=== PATIENT | female | born 1980 | race Caucasian/White ===

== ENCOUNTER 2018-12-14 17:53 | Emergency (ER) | payer BC ==
[2018-12-14] MEDS ORDERED: VENL150C61 PO (18:04)
--- NOTE | 2018-12-14 18:16 | ER Report ---
History and Physical Time Seen By MD: 18:16 Hx. of Stated Complaint: PAIN IN BACK, NUMBNESS TINGLING IN FINGERS HPI/ROS CHIEF COMPLAINT: Back pain, numbness in hands HISTORY OF PRESENT ILLNESS: 37-year-old female patient presents to emergency room with complaint of back pain and numbness or hands. Patient states that she has recently moved to [facility], 5 days ago, and did a lot of moving herself. She states that with that she started having pain in her low back as well as her upper back. She states that she's had numbness or hands for the last few days. She states that all this started 2 or 3 days ago but seems to have persisted. 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 She denies any neck pain, she denies any falls or injury. She states that her hands swelled up and her ankles swelled up. She states that she has been elevating her legs seem to help. She states that when this is happening in the past has because her hemoglobin had dropped down to 4. She is concerned about being anemic. She denies any nausea, vomiting or diarrhea. She states she is not taking any medication for this. REVIEW OF SYSTEMS: Respiratory: No cough, no dyspnea. Cardiovascular: No chest pain, no palpitations. Gastrointestinal: No vomiting, no abdominal pain. Musculoskeletal: As noted above Allergies: Coded Allergies: cephalexin (Verified Allergy, Unknown, 12/14/18) Home Meds Active Scripts Ketorolac Tromethamine (KETOROLAC TROMETHAMINE) 10 Mg Tab, 10 MG PO Q6H, #20 TAB Prov:MELI CALDERON [facility] 12/14/18 Cyclobenzaprine Hcl (CYCLOBENZAPRINE HCL) 10 Mg Tablet, 10 MG PO TID PRN for MUSCLE SPASMS, #15 TAB Prov:MELI CALDERON [facility] 12/14/18 Reported Medications Venlafaxine Hcl (EFFEXOR XR) 150 Mg Cap.er.24h, 150 MG PO QDAY 12/14/18 Past Medical/Surgical History Patient has a past medical history of edema, pneumonia, depression. Patient has a surgical history of appendectomy. Reviewed Nurses Notes: Yes Hx Substance Use Disorder: No Hx Alcohol Use: No Constitutional Vital Sign - Last 24 Hours 12/14/18 12/14/18 12/14/18 12/14/18 17:53 17:59 17:59 18:02 Temp 98.4 Pulse ??? 149 Resp 22 B/P (MAP) 140/96 (111) 140/96 115/87 (96) Pulse Ox 97 O2 Delivery Room Air 12/14/18 12/14/18 12/14/18 12/14/18 18:23 18:53 19:23 19:30 Pulse 117 134 137 Resp 19 52 20 B/P (MAP) ???/??? (1665) Pulse Ox 95 96 12/14/18 12/14/18 12/14/18 12/14/18 19:35 20:00 20:30 20:35 Pulse 121 116 Resp 22 14 B/P (MAP) ???/??? (1665) 121/81 (94) Pulse Ox 94 12/14/18 12/14/18 12/14/18 12/14/18 21:00 21:05 21:10 21:30 Pulse 106 117 Resp 21 8 B/P (MAP) 103/80 (88) 113/87 (96) 12/14/18 12/14/18 12/14/18 12/14/18 21:40 22:00 22:10 22:30 Pulse 138 106 Resp 10 17 B/P (MAP) 116/90 (99) 113/89 (97) 12/14/18 12/14/18 12/14/18 22:40 22:45 23:00 Pulse 130 130 Resp 9 17 B/P (MAP) 114/86 (95) Physical Exam General Appearance: The patient is alert, has no immediate need for airway protection and no current signs of toxicity. Respiratory: Chest is non tender, lungs are clear to auscultation. Cardiac: regular rhythm, patient is tachycardic Gastrointestinal: Abdomen is soft and non tender, no masses, bowel sounds normal. Musculoskeletal: Neck: Neck is supple and non tender. Back: Patient had pain in her thoracic spine, T3, T4 area. Patient also has pain in the L5-S1 region. Extremities have full range of motion and are non tender. Patient had no obvious weakness in her extremities, decreased sensation in bilateral hands and fingers one through 4. Skin: No rashes or lesions. Patient has skin that has peeled on both hands. DIFFERENTIAL DIAGNOSIS: After history and physical exam differential diagnosis was considered for muscle strain, carpal tunnel, neurologic deficit, pinched nerve. Medical Decision Making Data Points Result Diagram: 12/14/18194212/14/181942 Laboratory Hematology Test 12/14/18 19:43 Red Blood Count 5.37 M/uL (4.17-5.56) Mean Corpuscular Volume 89.2 fL (80.0-96.0) Mean Corpuscular Hemoglobin 30.1 pg (26.0-33.0) Mean Corpuscular Hemoglobin Concent 33.8 g/dL (32.0-36.0) Red Cell Distribution Width 13.5 % (11.5-14.5) Mean Platelet Volume 8.2 fL (7.2-11.1) Neutrophils (%) (Auto) 62.9 % (39.4-72.5) Lymphocytes (%) (Auto) 30.5 % (17.6-49.6) Monocytes (%) (Auto) 4.7 % (4.1-12.4) Eosinophils (%) (Auto) 1.0 % (0.4-6.7) Basophils (%) (Auto) 0.9 % (0.3-1.4) Nucleated RBC Relative Count (auto) 0.1 /100WBC Neutrophils # (Auto) 6.8 K/uL (2.0-7.4) Lymphocytes # (Auto) 3.3 K/uL (1.3-3.6) Monocytes # (Auto) 0.5 K/uL (0.3-1.0) Eosinophils # (Auto) 0.1 K/uL (0.0-0.5) Basophils # (Auto) 0.1 K/uL (0.0-0.1) Nucleated RBC Absolute Count (auto) 0.01 K/uL Erythrocyte Sedimentation Rate 24 mm/HOUR (0-20) Sodium Level 137 mmol/L (137-145) Potassium Level 3.8 mmol/L (3.5-5.0) Chloride Level 105 mmol/L (98-107) Carbon Dioxide Level 21 mmol/L (22-31) Blood Urea Nitrogen 9 mg/dl (7-18) Creatinine 0.60 mg/dl (0.52-1.04) Glomerular Filtration Rate Calc > 60.0 Random Glucose 91 mg/dl (75-110) Calcium Level 9.8 mg/dl (8.4-10.2) Total Bilirubin 0.2 mg/dl (0.2-1.3) Aspartate Amino Transf (AST/SGOT) 22 U/L (0-35) Alanine Aminotransferase (ALT/SGPT) 23 U/L (0-56) Alkaline Phosphatase 104 U/L (0-126) C-Reactive Protein < 0.5 mg/dl (<1.0) B-Type Natriuretic Peptide < 5 pg/ml (0-100) Total Protein 8.1 g/dl (6.3-8.2) Albumin 4.5 g/dl (3.5-5.0) Human Chorionic Gonadotropin, Qual Negative (NEGATIVE) Chemistry Test 12/14/18 19:43 White Blood Count 10.8 k/uL (4.5-11.0) Red Blood Count 5.37 M/uL (4.17-5.56) Hemoglobin 16.2 g/dL (12.0-16.0) Hematocrit 47.9 % (34.0-47.0) Mean Corpuscular Volume 89.2 fL (80.0-96.0) Mean Corpuscular Hemoglobin 30.1 pg (26.0-33.0) Mean Corpuscular Hemoglobin Concent 33.8 g/dL (32.0-36.0) Red Cell Distribution Width 13.5 % (11.5-14.5) Platelet Count 370 K/uL (150-450) Mean Platelet Volume 8.2 fL (7.2-11.1) Neutrophils (%) (Auto) 62.9 % (39.4-72.5) Lymphocytes (%) (Auto) 30.5 % (17.6-49.6) Monocytes (%) (Auto) 4.7 % (4.1-12.4) Eosinophils (%) (Auto) 1.0 % (0.4-6.7) Basophils (%) (Auto) 0.9 % (0.3-1.4) Nucleated RBC Relative Count (auto) 0.1 /100WBC Neutrophils # (Auto) 6.8 K/uL (2.0-7.4) Lymphocytes # (Auto) 3.3 K/uL (1.3-3.6) Monocytes # (Auto) 0.5 K/uL (0.3-1.0) Eosinophils # (Auto) 0.1 K/uL (0.0-0.5) Basophils # (Auto) 0.1 K/uL (0.0-0.1) Nucleated RBC Absolute Count (auto) 0.01 K/uL Erythrocyte Sedimentation Rate 24 mm/HOUR (0-20) Glomerular Filtration Rate Calc > 60.0 Calcium Level 9.8 mg/dl (8.4-10.2) Total Bilirubin 0.2 mg/dl (0.2-1.3) Aspartate Amino Transf (AST/SGOT) 22 U/L (0-35) Alanine Aminotransferase (ALT/SGPT) 23 U/L (0-56) Alkaline Phosphatase 104 U/L (0-126) C-Reactive Protein < 0.5 mg/dl (<1.0) B-Type Natriuretic Peptide < 5 pg/ml (0-100) Total Protein 8.1 g/dl (6.3-8.2) Albumin 4.5 g/dl (3.5-5.0) Human Chorionic Gonadotropin, Qual Negative (NEGATIVE) EKG/Imaging Imaging EXAMINATION: CT Cervical spine without intravenous contrast HISTORY: Numbness in fingers. COMPARISON: None. TECHNIQUE: Axial images were obtained from the skull base through the upper thoracic spine without IV contrast administration. Coronal and sagittal reformatted images were obtained from the axial source data. One of the following dose optimization techniques was utilized in the performance of this exam: Automated exposure control; adjustment of the mA and/or kV according to the patient's size; or use of an iterative reconstruc tion technique. Specific details can be referenced in the facility's radiology CT exam operational policy. FINDINGS: Alignment: Kyphotic curvature of the cervical spine. Cranio-cervical junction: Negative. Vertebral bodies: Negative. Posterior elements: Negative. Hardware: None. Disc Spaces: Intervertebral disc heights are maintained. No evidence of any significant spinal canal or neural foraminal narrowing. Soft tissues: Negative. Visualized upper chest: Mild pleural-parenchymal scarring at the lung apices. IMPRESSION: No acute fracture or dislocation of the cervical spine. No significant degenerative changes are seen in the cervical spine. Report Dictated By: Austin Marley MD at 12/14/2018 10:39 PM Report E-Signed By: Austin Marley MD at 12/14/2018 10:47 PM EXAMINATION: Head CT without intravenous contrast HISTORY: Numbness in fingers. COMPARISON: None. TECHNIQUE: Contiguous axial images were obtained from the skull base to the vertex without intravenous contrast. Sagittal and coronal reformatted images are also submitted. One of the following dose optimization techniques was utilized in the performance of this exam: Automated exposure control; adjustment of the mA and/or kV according to the patient's size; or use of an iterative reconstruction technique. Specific details can be referenced in the facility's radiology CT exam operational policy. FINDINGS: Brain and intracranial structures: Ventricles, sulci, and cisterns are normal in size. Rose-white matter differentiation is maintained. No midline shift, acute hemorrhage, mass, or evidence of acute infarct. Calvarium / scalp: Negative. Skull base / visualized face: Negative. Visualized sinuses / orbits: Negative. IMPRESSION: No CT evidence of acute intracranial pathology. Report Dictated By: Austin Marley MD at 12/14/2018 9:07 PM Report E-Signed By: Austin Marley MD at 12/14/2018 9:16 PM EXAMINATION: CT Lumbar spine without intravenous contrast HISTORY: Pain, numbness in fingers. COMPARISON: None. TECHNIQUE: Axial images were obtained through the lumbar spine without IV contrast administration. Coronal and sagittal reformatted images were obtained from the axial source data. One of the following dose optimization techniques was utilized in the perform ance of this exam: Automated exposure control; adjustment of the mA and/or kV according to the patient's size; or use of an iterative reconstruction technique. Specific details can be referenced in the facility's radiology CT exam operational policy. FINDINGS: Alignment: Mild left convex curvature of the upper lumbar spine. Vertebral bodies: Vertebral body heights are maintained. No acute fracture. Posterior elements: Negative. Hardware: None. Disc Spaces: Intervertebral disc heights are maintained. Schmorl node in the superior endplate of S1. Disc bulge mildly narrows the bilateral L4-5 neural foramina. No significant central spinal canal narrowing. Soft tissues: Negative. Visualized retroperitoneal / abdominal structures: Negative. IMPRESSION: No acute fracture or dislocation of the lumbar spine. Mild bulging of the L4-5 disc which mildly narrows the right lateral L4-5 neural foramina. Report Dictated By: Austin Marley MD at 12/14/2018 10:47 PM Report E-Signed By: Austin Marley MD at 12/14/2018 10:55 PM EXAMINATION: CT Thoracic spine without intravenous contrast HISTORY: Pain. Numbness in fingers. COMPARISON: None. TECHNIQUE: Axial images were obtained through the thoracic spine without IV contrast administration. Coronal and sagittal reformatted images were obtained from the axial source data. One of the following dose optimization techniques was utilized in the performance of this exam: Automated exposure control; adjustment of the mA and/or kV according to the patient's size; or use of an iterative reconstruction technique. Specific details can be referenced in the facility's radiology CT exam operational policy. FINDINGS: Alignment: Right convex scoliosis of the thoracic spine. Vertebral bodies: There is chronic appearing slight anterior wedging of the T5 vertebral body. There are Schmorl nodes in the superior endplates of T3 and T5. No evidence of acute fracture. Posterior elements: Negative. Hardware: None. Disc Spaces: No significant bony neural foraminal narrowing in the thoracic spine. No evidence of central canal stenosis in the thoracic spine. Soft tissues: Negative. Visualized lungs / abdomen: Several calcified mediastinal and hilar lymph nodes. Multiple calcified granulomas in the lungs. IMPRESSION: No evidence of acute fracture of the thoracic spine. There is a slight anterior wedging of the T5 vertebral body which appears chronic. There is right convex scoliotic curvature of the thoracic spine. No evidence of significant canal or neural foraminal narrowing in the thoracic spine. Report Dictated By: Austin Marley MD at 12/14/2018 10:55 PM Report E-Signed By: Austin Marley MD at 12/14/2018 11:21 PM ED Course/Re-evaluation ED Course Patient was admitted to exam room, history and physical were obtained. Differential diagnoses were considered. On examination lungs are clear, heart is regular, abdomen is soft nontender. Patient does have tenderness to the thoracic spine as well as the lumbar spine. There is no bruising noted. Patient did have skin that was peeling off her hands. A CBC, CMP, hCG were done. Lab results were unremarkable. CT scan of the head, thoracic spine, cervical spine and lumbar spine were done. At the time of this documentation the thoracic spine still has not been read. Patient is refusing to wait for the scan to be read. Patient did have a negative CT scan of the head and cervical spine. He did indicate a bulging disc in the L4-L5 region as well as mild stenosis of the left mylene. Patient had received a prescription for Buprenorphine 8 mg #90 on November 26. It is my believe the patient likely has that left. She states she is not taking shaista t for any opiate addiction, however she was taking that for pain. I will allow her to continue taking that for pain. We will give her Toradol as well as Flexeril. She is to limit her activity by pain. She is to return to emergency room if condition worsens. She is to follow-up with her psychiatrist, who prescribed pain medication, for more pain medication if needed. She is to follow-up with her primary care provider with any concerns. Patient verbalized understanding and agreement with plan. 12/14/2018 11:29:[address] pm [address] thoracic spine CT has been read which showed no acute findings. Decision to Disposition Date: December 14, 2018 Decision to Disposition Time: 23:16 Depart Departure Latest Vital Signs Vital Signs Date Time Temp Pulse Resp B/P (MAP) Pulse Ox O2 Delivery O2 Flow Rate FiO2 12/14/18 23:00 114/86 (95) 12/14/18 22:45 130 17 12/14/18 20:35 94 12/14/18 17:59 98.4 Room Air Impression: Primary Impression: Back strain Additional Impression: Bulging disc Condition: Improved Disposition: HOME OR SELF-CARE New Scripts Ketorolac Tromethamine (KETOROLAC TROMETHAMINE) 10 Mg Tab 10 MG PO Q6H, #20 TAB Prov: MELI CALDERON 12/14/18 Cyclobenzaprine Hcl (CYCLOBENZAPRINE HCL) 10 Mg Tablet 10 MG PO TID PRN for MUSCLE SPASMS, #15 TAB Prov: MELI CALDERON 12/14/18 Patient Instructions: Low Back Strain (ED) Additional Instructions: Limit activity by pain. Alternate ice and heat for your back. Follow up with your psychiatrist if the pain persists. Return to the ER if condition worsens. Take the medication as prescribed. Problem Qualifiers Primary Impression: Back strain Encounter type: initial encounter Qualified Codes: S39.012A - Strain of muscle, fascia and tendon of lower back, initial encounter MELI CALDERON December 14, 2018 18:16
[2018-12-14] MEDS ORDERED: NS(*) 0.9% 1000 ML BAG 1,000 ML IV ONE (18:25)
[2018-12-14] MEDS ORDERED: LORazepam 2 MG/ML VIAL IVP ONE (18:45)
[2018-12-14] MEDS ORDERED: MORPHINE 10 MG/ML SYR IM ONE (19:35)
[2018-12-14] MEDS ORDERED: MORPHINE 4 MG/ML SDV ONE (19:41)
[2018-12-14 19:57] LABS: PLATELET COUNT, AUTOMATED 370 K/uL (150-450)
--- NOTE | 2018-12-14 21:20 | RADIOLOGY IMAGING REPORT ---
FACILITY: [facility] [place] PATIENT NAME: Geronimo Pineda : 1980 MR: [id number] V: [id number] EXAM DATE: ORDERING PHYSICIAN: MELI CALDERON TECHNOLOGIST: Location: [facility] [place] Patient: Geronimo Pineda : 1980 Visit/Account:[id number] Date of Sevice: 12/14/2018 EXAMINATION: Head CT without intravenous contrast HISTORY: Numbness in fingers. COMPARISON: None. TECHNIQUE: Contiguous axial images were obtained from the skull base to the vertex without intraven ous contrast. Sagittal and coronal reformatted images are also submitted. One of the following dose optimization techniques was utilized in the performance of this exam: Autom ated exposure control; adjustment of the mA and/or kV according to the patient's size; or use of an i terative reconstruction technique. Specific details can be referenced in the facility's radiology C T exam operational policy. FINDINGS: Brain and intracranial structures: Ventricles, sulci, and cisterns are normal in size. Rose-white ma tter differentiation is maintained. No midline shift, acute hemorrhage, mass, or evidence of acute infarct. Calvarium / scalp: Negative. Skull base / visualized face: Negative. Visualized sinuses / orbits: Negative. IMPRESSION: No CT evidence of acute intracranial pathology. Report Dictated By: Austin Marley MD at 12/14/2018 9:07 PM Report E-Signed By: Austin Marley MD at 12/14/2018 9:16 PM WSN:[id number]
--- NOTE | 2018-12-14 22:51 | RADIOLOGY IMAGING REPORT ---
FACILITY: [facility] PATIENT NAME: Geronimo Pineda : 1980 MR: [id number] V: [id number] EXAM DATE: ORDERING PHYSICIAN: MELI CALDERON TECHNOLOGIST: Location: [facility] [place] Patient: Geronimo Pineda : 1980 Visit/Account:[id number] Date of Sevice: 12/14/2018 EXAMINATION: CT Cervical spine without intravenous contrast HISTORY: Numbness in fingers. COMPARISON: None. TECHNIQUE: Axial images were obtained from the skull base through the upper thoracic spine without I V contrast administration. Coronal and sagittal reformatted images were obtained from the axial [facility] e data. One of the following dose optimization techniques was utilized in the performance of this exam: Autom ated exposure control; adjustment of the mA and/or kV according to the patient's size; or use of an i terative reconstruction technique. Specific details can be referenced in the facility's radiology C T exam operational policy. FINDINGS: Alignment: Kyphotic curvature of the cervical spine. Cranio-cervical junction: Negative. Vertebral bodies: Negative. Posterior elements: Negative. Hardware: None. Disc Spaces: Intervertebral disc heights are maintained. No evidence of any significant spinal canal or neural foraminal narrowing. Soft tissues: Negative. Visualized upper chest: Mild pleural-parenchymal scarring at the lung apices. IMPRESSION: No acute fracture or dislocation of the cervical spine. No significant degenerative changes are seen in the cervical spine. Report Dictated By: Austin Marley MD at 12/14/2018 10:39 PM Report E-Signed By: Austin Marley MD at 12/14/2018 10:47 PM WSN:[id number]
--- NOTE | 2018-12-14 22:59 | RADIOLOGY IMAGING REPORT ---
FACILITY: [facility] PATIENT NAME: Geronimo Pineda : 1980 MR: [id number] V: [id number] EXAM DATE: ORDERING PHYSICIAN: MELI CALDERON TECHNOLOGIST: Location: [facility] Patient: Geronimo Pineda : 1980 Visit/Account:[id number] Date of Sevice: 12/14/2018 EXAMINATION: CT Lumbar spine without intravenous contrast HISTORY: Pain, numbness in fingers. COMPARISON: None. TECHNIQUE: Axial images were obtained through the lumbar spine without IV contrast administration. C oronal and sagittal reformatted images were obtained from the axial source data. One of the following dose optimization techniques was utilized in the performance of this exam: Autom ated exposure control; adjustment of the mA and/or kV according to the patient's size; or use of an i terative reconstruction technique. Specific details can be referenced in the facility's radiology C T exam operational policy. FINDINGS: Alignment: Mild left convex curvature of the upper lumbar spine. Vertebral bodies: Vertebral body heights are maintained. No acute fracture. Posterior elements: Negative. Hardware: None. Disc Spaces: Intervertebral disc heights are maintained. Schmorl node in the superior endplate of S1. Disc bulge mildly narrows the bilateral L4-5 neural foramina. No significant central spinal canal na rrowing. Soft tissues: Negative. Visualized retroperitoneal / abdominal structures: Negative. IMPRESSION: No acute fracture or dislocation of the lumbar spine. Mild bulging of the L4-5 disc which mildly narrows the right lateral L4-5 neural foramina. Report Dictated By: Austin Marley MD at 12/14/2018 10:47 PM Report E-Signed By: Austin Marley MD at 12/14/2018 10:55 PM WSN:[id number]
[2018-12-14 23:00] VITALS: BP 114/86
[2018-12-14] MEDS ORDERED: CYCL10TA29 PO (23:14)
[2018-12-14] MEDS ORDERED: KET10 PO (23:14)
[2018-12-14] MEDS ORDERED: KETOROLAC TROM 10 MG TAB TH PO ONE (23:20)
[2018-12-14] MEDS ORDERED: CYCLOBENZAPRINE HCL 10 MG TH PO ONE (23:20)
--- NOTE | 2018-12-14 23:24 | RADIOLOGY IMAGING REPORT ---
FACILITY: [facility] [place] PATIENT NAME: Geronimo Pineda : 1980 MR: [id number] V: [id number] EXAM DATE: ORDERING PHYSICIAN: MELI CALDERON TECHNOLOGIST: Location: [facility] Patient: Geronimo Pineda : 1980 Visit/Account:[id number] Date of Sevice: 12/14/2018 EXAMINATION: CT Thoracic spine without intravenous contrast HISTORY: Pain. Numbness in fingers. COMPARISON: None. TECHNIQUE: Axial images were obtained through the thoracic spine without IV contrast administration. Coronal and sagittal reformatted images were obtained from the axial source data. One of the following dose optimization techniques was utilized in the performance of this exam: Autom ated exposure control; adjustment of the mA and/or kV according to the patient's size; or use of an i terative reconstruction technique. Specific details can be referenced in the facility's radiology C T exam operational policy. FINDINGS: Alignment: Right convex scoliosis of the thoracic spine. Vertebral bodies: There is chronic appearing slight anterior wedging of the T5 vertebral body. There are Schmorl nodes in the superior endplates of T3 and T5. No evidence of acute fracture. Posterior elements: Negative. Hardware: None. Disc Spaces: No significant bony neural foraminal narrowing in the thoracic spine. No evidence of carleen tral canal stenosis in the thoracic spine. Soft tissues: Negative. Visualized lungs / abdomen: Several calcified mediastinal and hilar lymph nodes. Multiple calcified g ranulomas in the lungs. IMPRESSION: No evidence of acute fracture of the thoracic spine. There is a slight anterior wedging of the T5 andres tebral body which appears chronic. There is right convex scoliotic curvature of the thoracic spine. No evidence of significant canal or neural foraminal narrowing in the thoracic spine. Report Dictated By: Austin Marley MD at 12/14/2018 10:55 PM Report E-Signed By: Austin Marley MD at 12/14/2018 11:21 PM WSN:[id number]
== END 2018-12-14 23:26 | disposition home or self-care (01) ==
LOC: ER 18:32
DX: S39.012A Strain of muscle, fascia and tendon of lower back, initial encounter (principal); M51.26 Other intervertebral disc displacement, lumbar region
CPT/HCPCS: 36415; 70450; 72125; 72128; 72131; 83880; 84703; 85025; 85651; 86140; 96372; 99284; J2270; 82040; 82247; 82310; 82374; 82435; 82565; 82947; 84075; 84132; 84155; 84295; 84450; 84460; 84520